=== PATIENT | male | born 1970 | race Caucasian/White ===

== ENCOUNTER → 2016-07-04 | Outpatient (REF) | payer MEDICAID, OTHER ==
[~2016-07-04] MED LIST: /ESOM40CA PO; /QUET10TA OR; AMBI10TA OR; AMBI5TAB; CHLO25CA2 OR; KLON0.5T; NEUR300C OR; PAXI20TA OR; PERC7.5T8 OR; SOMA350T OR; TRIL600T OR; VICO5TAB; norco; pristiq
== END ==
LOC: M LAB REF 11:47
PROVIDERS: ATTEND Family Medicine Addiction Medicine
DX: M54.5 Low back pain (principal)

== ENCOUNTER → 2016-09-27 | Outpatient (REF) | payer OTHER ==
[2016-10-02 14:14] LABS: BENZODIAZEPINES, URINE SCREEN Negative ng/mL (Cutoff=200); METHADONE, URINE SCREEN Negative ng/mL (Cutoff=300); pH, URINE 6.7 (4.5-8.9)
== END ==
LOC: M LAB REF 12:08
PROVIDERS: ATTEND Family Medicine Addiction Medicine
DX: M54.5 Low back pain (principal); F11.188 Opioid abuse with other opioid-induced disorder

== ENCOUNTER → 2021-02-07 | Outpatient (CLI) | payer OTHER ==
[~2021-02-07] MED LIST changes: -/ESOM40CA PO; -/QUET10TA OR; +NEXI1CAP3 PO; +SERO1TAB OR
--- NOTE | 2021-02-08 09:05 | REPVR ---
PROCEDURE INFORMATION: Exam: MR Lumbar Spine Without Contrast Exam date and time: 02/07/2021 9:56 AM Age: 50 years old Clinical indication: Low back pain TECHNIQUE: Imaging protocol: Multiplanar magnetic resonance images of the lumbar spine without intravenous contrast. COMPARISON: MRI Lumbar without contrast-OUTSIDE PRIOR 08/16/2015 10:10 AM FINDINGS: Vertebrae: Vertebral body heights normal. There is disc desiccation and mild posterior disc height loss L3-L4 (new) and L4-L5. There is stable disc desiccation and moderate disc height loss at L5-S1. Vertebral body marrow signal is unremarkable. Spinal cord: Conus terminates at T12-L1 and appears normal in signal intensity without intrinsic or extrinsic lesion. L1-L2: There is no significant disc bulge. There is mild facet degeneration. There is no significant spinal stenosis. There is no significant neural foraminal narrowing. No interval change. L2-L3: There is generalized in slightly increased disc bulge, greater extending into neural foramen. There is mild facet degeneration. There is no significant spinal stenosis. There is mild but slightly increased bilateral neural foraminal narrowing. L3-L4: There is generalized disc bulge. There is [id number] facet degeneration. There is no significant spinal stenosis. There is mild bilateral neural foraminal narrowing. No interval change. L4-L5: There is generalized disc bulge. There is increased and moderate thickening of ligamentum flavum and facet degeneration. There is mild triangular configuration thecal sac but no significant spinal stenosis. There is increased and moderate right neural foraminal narrowing. On sagittal T1 image 10 and T2 weighted image 11, there appears to be a low T1 signal and mildly bright T2 signal soft tissue superior posterior to the disc bulging into the foramen which is concerning for a disc fragment, measuring approximately 6.8 mm by 3.5 mm. This contacts and likely compresses the exiting right L4 nerve root and correlate clinically. There is stable and moderate left neural foraminal narrowing. L5-S1: There is generalized disc bulge. There is slightly increased central and left paracentral disc protrusion measuring approximately 4 mm, which mildly deforms thecal sac. There is mild facet degeneration. There is no significant spinal stenosis. There is mild bilateral neural foraminal narrowing. Soft tissues: Unremarkable. IMPRESSION: Degenerative changes as described. L4-L5 appears to show a small disc fragment in the right neural foramen with neural foraminal narrowing and on probable L4 nerve root compression. Electronically signed by: Mila Parsons On 02/08/2021 09:05:33 AM
== END ==
LOC: M PLAIMG 08:01
PROVIDERS: ATTEND Family Medicine Addiction Medicine
DX: M54.50 Low back pain, unspecified (principal)